=== PATIENT | female | born 1940 | race African-American/Black ===

== ENCOUNTER 2018-09-30 10:24 | Emergency (ER) | payer MEDICARE, OTHER ==
--- NOTE | 2018-09-30 11:07 | RAD ---
Radiograph right knee 4 views: DATE: 09/30/2018 HISTORY: 78-year-old female with persistent posttraumatic pain after fall 2 weeks ago. FINDINGS: Suprapatellar joint effusion. No fracture or dislocation. Mild joint space narrowing and mild osteoph ytosis at medial compartment. Tiny osteophytes but no significant joint space narrowing at patellofemoral and lateral compartments. IMPRESSION: 1. No evidence of fracture. 2. Joint effusion. 3. At least mild osteoarthrosis at medial compartment.
[2018-09-30] MEDS ORDERED: Ketorolac Tromethamine 30 MG/ML VIAL ONE (12:23)
== END 2018-09-30 12:45 | disposition home or self-care (01) ==
LOC: ERS 10:24
DX: M17.11 Unilateral primary osteoarthritis, right knee (principal); E11.9 Type 2 diabetes mellitus without complications; J30.2 Other seasonal allergic rhinitis; F17.210 Nicotine dependence, cigarettes, uncomplicated; K21.9 Gastro-esophageal reflux disease without esophagitis
CPT/HCPCS: 96372; J1885